=== PATIENT | female | born 1935 ===

== ENCOUNTER 2018-09-06 10:01 | Inpatient (IN) ==
[2018-09-06] MEDS ORDERED: PROMETHAZINE 25 MG/1 ML VIAL IM PRN (13:32)
[2018-09-06] MEDS ORDERED: ONDANSETRON 4 MG/2 ML VIAL IV PRN (13:32)
[2018-09-06] MEDS ORDERED: ACETAMINOPHEN 325 MG TABLET PO PRN (13:32)
[2018-09-06 14:11] LABS: ABG Base Excess 0.5 MMOL/L (-2.5-2.5); ABG HCO3 28.7 MMOL/L (20-26); ABG Oxygen Saturation 98.1 % (95-100); ABG PCO2 65.8 MM HG (35-48); ABG PH 7.258 (7.35-7.45); ABG PO2 130.2 MM HG (80-95); ABG TCO2 30.8 MMOL/L (23-27)
[2018-09-06] MEDS ORDERED: FUROSEMIDE 40 MG/4 ML VIAL IV SCH (14:17)
[2018-09-06] MEDS ORDERED: FUROSEMIDE 20 MG/2 ML VIAL IV SCH (14:26)
[2018-09-06 14:27] LABS: Immature Granulocytes % 0.5 %; Immature Granulocytes Absolute 0.04 #; Lymphocytes # 0.5 10*3/uL (1.4-4.0); Lymphocytes % 6.3 % (21.3-54.2); Mean Corpuscular HGB Conc 27.9 GM/DL (32-36); Mean Corpuscular Volume 86.8 FL (87-102); Monocytes % 4.3 % (1.7-12.7); Neutrophils % 88.9 % (38.7-73.9); Platelet Count 215 T/CUMM (130-400); Red Blood Count 4.17 MC/CUMM (3.8-5.5); Red Cell Distribution Width 19.6 % (9.3-17.3); White Blood Count 7.9 T/CUMM (4-12)
[2018-09-06 14:35] LABS: Hematocrit 36.2 VOL% (35.7-47.0); Hemoglobin 10.1 GM/DL (12.0-16.0)
[2018-09-06] MEDS: PANTOPRAZOLE 40 MG TABLET PO SCH ×2 (14:35→15:20)
[2018-09-06] MEDS ORDERED: MAGNESIUM SULF RIDER 4 GM in PREMIX 1 EACH IV PRN (14:36)
[2018-09-06] MEDS: methylPREDNISolone SOD SUC 40 MG/1 ML VIAL IV SCH ×2 (14:36→21:33)
[2018-09-06] MEDS ORDERED: POTASSIUM CHLORIDE 20 MEQ TABLET PO PRN (14:36)
[2018-09-06] MEDS ORDERED: MAGNESIUM SULF RIDER 2 GM in PREMIX 1 EACH IV PRN (14:36)
[2018-09-06 14:41] LABS: CKMB % 4.2 %
[2018-09-06 14:42] LABS: Troponin I 0.06 NG/ML (0.00-0.045)
[2018-09-06 14:48] LABS: % Iron Saturation 21.1 % (18-50); Ferritin 21.1 ng/ml (8-252)
[2018-09-06 14:49] LABS: Albumin 3.8 G/DL (3.4-5.0); Bilirubin,Total 0.4 MG/DL (0.2-1.0); Calcium 8.6 MG/DL (8.5-10.1); Osmolality,Calculated 287.3 MOS/KG (273-304); Thyroid Stimulating Hormone 0.231 uIU/ml (0.358-3.74); Total Protein 6.6 G/DL (6.4-8.3)
[2018-09-06 15:16] LABS: Amorphous Crystals,Urine Occasional /HPF (Few); Apearance,Urine CLOUDY (Clear); Bilirubin,Urine Negative (Negative); Blood, Urine Small mg/dL (Negative); Glucose,Urine (UA) Negative (Negative); Ketones,Urine Negative (Negative); Nitrite,Urine Negative (Negative); Protein,Urine Negative; Squamous Epithelial Cell,Urine Occasional /HPF (0-10); Urine Color Yellow (Yellow); Urine Specific Gravity 1.006 (1.001-1.035); Urine Urobilinogen < 2.0 EU/DL (0.2-1.0); WBC,Urine 1 /HPF (0-6)
[2018-09-06] MEDS: LEVOFLOXACIN INJ 500 MG in PREMIX 1 EACH IV SCH (15:23)
[2018-09-06] MEDS: ENOXAPARIN 40 MG/0.4 ML SYRINGE SUBCUT SCH (15:23)
[2018-09-06 15:26] LABS: Folate 10.1 NG/ML (5.4-24.0)
[2018-09-06 16:03] LABS: Acanthocytes Few; Anisocytosis 1+; Elliptocytes 1+; Microcytosis 1+; Platelet Estimate Normal; Polychromasia Slight
[2018-09-06] MEDS ORDERED: PROPOFOL 1,000 MG/100 ML BOTTLE IV ONE (18:07)
[2018-09-06] MEDS ORDERED: ETOMIDATE 20 MG/10 ML VIAL IV ONE ×2 (18:20→18:59)
[2018-09-06] MEDS ORDERED: SUCCINYLCHOLINE 200 MG/10 ML VIAL ONE (18:21)
[2018-09-06] MEDS ORDERED: LORazepam INJ 40 MG in DEXTROSE 5% 30 ML IV PRN (18:46)
[2018-09-06] MEDS ORDERED: ALBUTEROL 2.5 MG/3 ML NEB RESP TX PRN (18:46)
[2018-09-06] MEDS ORDERED: DOPamine 800 MG/250 ML PREMIX IV PRN (18:56)
[2018-09-06] MEDS ORDERED: fentaNYL INJ 1,250 MCG in SODIUM CHLORIDE 0.9% 225 ML IV PRN (18:59)
[2018-09-06] MEDS ORDERED: DOPamine 800 MG/250 ML PREMIX IV SCH (19:00)
[2018-09-06] MEDS ORDERED: DEXTROSE 50% 25 GM/50 ML VIAL IV PRN (19:00)
[2018-09-06] MEDS ORDERED: GLUCAGON 1 MG VIAL IM PRN (19:00)
[2018-09-06] MEDS ORDERED: SUCCINYLCHOLINE 200 MG/10 ML VIAL IV ONE (19:00)
[2018-09-06] MEDS: PROPOFOL 1,000 MG/100 ML BOTTLE IV SCH ×2 (19:05→23:50)
[2018-09-06] MEDS ORDERED: DOBUTamine 500 MG/250 ML PREMIX IV PRN (19:16)
[2018-09-06 20:32] LABS: Apearance,Urine CLEAR (Clear); Bacteria,Urine Occasional /HPF (Few); Bilirubin,Urine Negative (Negative); Blood, Urine Moderate mg/dL (Negative); Glucose,Urine (UA) Negative (Negative); Hyaline Casts,Urine 8 /LPF (0-3); Ketones,Urine Negative (Negative); Mucus,Urine Occasional /LPF (Occasional); Nitrite,Urine Negative (Negative); Protein,Urine Negative; RBC,Urine 17 /HPF (0-4); Squamous Epithelial Cell,Urine Occasional /HPF (0-10); Urine Color Straw (Yellow); Urine Specific Gravity 1.006 (1.001-1.035); Urine Urobilinogen < 2.0 EU/DL (0.2-1.0); WBC,Urine 6 /HPF (0-6)
[2018-09-06] MEDS: ALBUTEROL/IPRATROPIUM 3 ML NEB RESP TX SCH (20:41)
[2018-09-06 20:47] LABS: ABG Base Excess 4.2 MMOL/L (-2.5-2.5); ABG HCO3 28.2 MMOL/L (20-26); ABG PCO2 42.6 MM HG (35-48); ABG PH 7.438 (7.35-7.45)
[2018-09-06] MEDS: FLUTICASONE/SALMETEROL 500-50 DISKUS 14 DOSE INH SCH (20:49)
[2018-09-06] MEDS: CARVEDILOL 6.25 MG TABLET PO SCH (21:33)
[2018-09-06] MEDS: FAMOTIDINE 20 MG/2 ML VIAL IV SCH (21:33)
[2018-09-06] MEDS: hydrALAZINE 20 MG/1 ML VIAL IV PRN (21:34)
[2018-09-07] MEDS: INSULIN REGULAR 100 UNIT/ML SUBCUT SCH ×5 (00:08→23:51)
[2018-09-07] MEDS: ALBUTEROL/IPRATROPIUM 3 ML NEB RESP TX SCH ×4 (00:34→20:07)
[2018-09-07 04:35] LABS: ABG Base Excess 6.8 MMOL/L (-2.5-2.5); ABG HCO3 30.7 MMOL/L (20-26); ABG PCO2 39.3 MM HG (35-48); ABG PH 7.498 (7.35-7.45); ABG TCO2 27.4 MMOL/L (23-27)
[2018-09-07 04:44] LABS: Basophils % 0.1 % (0.0-0.8); Hematocrit 34.6 VOL% (35.7-47.0); Hemoglobin 10.2 GM/DL (12.0-16.0); Immature Granulocytes % 0.5 %; Immature Granulocytes Absolute 0.04 #; Lymphocytes # 0.4 10*3/uL (1.4-4.0); Lymphocytes % 5.1 % (21.3-54.2); Mean Corpuscular HGB Conc 29.5 GM/DL (32-36); Mean Corpuscular Volume 81.4 FL (87-102); Mean Platelet Volume 10.6 FL (9.6-12.0); Monocytes % 6.7 % (1.7-12.7); NRBC # 0.04 10*3/uL; Neutrophils % 87.6 % (38.7-73.9); Platelet Count 172 T/CUMM (130-400); Red Blood Count 4.25 MC/CUMM (3.8-5.5)
[2018-09-07 05:03] LABS: Albumin 3.7 G/DL (3.4-5.0); Bilirubin,Total 0.7 MG/DL (0.2-1.0); Calcium 8.6 MG/DL (8.5-10.1); Osmolality,Calculated 288.3 MOS/KG (273-304); Total Protein 6.4 G/DL (6.4-8.3)
[2018-09-07] MEDS: methylPREDNISolone SOD SUC 40 MG/1 ML VIAL IV SCH ×3 (05:04→21:09)
[2018-09-07 05:09] LABS: Risk Ratio 3.12; VLDL CHOLESTEROL 38.2 MG/DL
[2018-09-07] MEDS: PROPOFOL 1,000 MG/100 ML BOTTLE IV SCH ×3 (05:24→19:45)
[2018-09-07] MEDS: hydrALAZINE 20 MG/1 ML VIAL IV PRN (07:37)
[2018-09-07] MEDS: SPIRONOLACTONE 25 MG TABLET PO SCH (08:41)
[2018-09-07] MEDS: FUROSEMIDE 40 MG/4 ML VIAL IV SCH ×2 (08:41→16:13)
[2018-09-07] MEDS: LISINOPRIL 10 MG TABLET PO SCH (08:41)
[2018-09-07] MEDS: FAMOTIDINE 20 MG/2 ML VIAL IV SCH ×2 (08:41→20:21)
[2018-09-07] MEDS: CARVEDILOL 6.25 MG TABLET PO SCH ×2 (08:42→20:21)
[2018-09-07] MEDS: POTASSIUM CHLORIDE RIDER 10 MEQ in PREMIX 1 EACH IV PRN ×3 (08:56→11:04)
[2018-09-07] MEDS ORDERED: amLODIPine 10 MG TABLET PO SCH (09:00)
[2018-09-07] MEDS: FLUTICASONE/SALMETEROL 500-50 DISKUS 14 DOSE INH SCH ×2 (09:38→21:08)
[2018-09-07 10:55] LABS: ABG HCO3 32.7 MMOL/L (20-26); ABG Oxygen Saturation 98.9 % (95-100); ABG PCO2 36.6 MM HG (35-48); ABG PH 7.548 (7.35-7.45); ABG TCO2 28.2 MMOL/L (23-27); Pt O2 Delivery Device Ventilator
[2018-09-07] MEDS ORDERED: amLODIPine 5 MG TABLET PO SCH (11:51)
[2018-09-07] MEDS: LEVOFLOXACIN INJ 500 MG in PREMIX 1 EACH IV SCH (14:57)
[2018-09-07] MEDS: ENOXAPARIN 40 MG/0.4 ML SYRINGE SUBCUT SCH (14:57)
[2018-09-08] MEDS: ALBUTEROL/IPRATROPIUM 3 ML NEB RESP TX SCH ×4 (00:50→19:32)
[2018-09-08] MEDS: PROPOFOL 1,000 MG/100 ML BOTTLE IV SCH (03:40)
[2018-09-08 03:51] LABS: ABG Base Excess 9.4 MMOL/L (-2.5-2.5); ABG HCO3 33.2 MMOL/L (20-26); ABG Oxygen Saturation 99.1 % (95-100); ABG PCO2 41.3 MM HG (35-48); ABG PH 7.515 (7.35-7.45); ABG TCO2 29.1 MMOL/L (23-27)
[2018-09-08 03:57] LABS: Basophils % 0.1 % (0.0-0.8); Hematocrit 40.7 VOL% (35.7-47.0); Hemoglobin 12.3 GM/DL (12.0-16.0); Immature Granulocytes % 0.7 %; Immature Granulocytes Absolute 0.08 #; Lymphocytes # 0.3 10*3/uL (1.4-4.0); Lymphocytes % 2.5 % (21.3-54.2); Mean Corpuscular HGB Conc 30.2 GM/DL (32-36); Mean Corpuscular Volume 79.8 FL (87-102); Monocytes % 4.1 % (1.7-12.7); Neutrophils % 92.6 % (38.7-73.9); Platelet Count 249 T/CUMM (130-400); Red Cell Distribution Width 19.4 % (9.3-17.3); White Blood Count 12.2 T/CUMM (4-12)
[2018-09-08 04:15] LABS: Calcium 9.3 MG/DL (8.5-10.1); Osmolality,Calculated 292.5 MOS/KG (273-304)
[2018-09-08 04:59] LABS: Band Neutrophils 2 % (0-10); Lymphocytes 2 % (20-55); Platelet Estimate Normal; Segmented Neutrophils 92 % (50-85); Total Cells Counted 100
[2018-09-08] MEDS: INSULIN REGULAR 100 UNIT/ML SUBCUT SCH (06:12)
[2018-09-08] MEDS: methylPREDNISolone SOD SUC 40 MG/1 ML VIAL IV SCH ×3 (06:18→21:04)
[2018-09-08] MEDS: FLUTICASONE/SALMETEROL 500-50 DISKUS 14 DOSE INH SCH ×2 (08:02→20:34)
[2018-09-08] MEDS: FAMOTIDINE 20 MG/2 ML VIAL IV SCH ×2 (08:19→20:32)
[2018-09-08] MEDS: CARVEDILOL 6.25 MG TABLET PO SCH ×2 (08:20→20:34)
[2018-09-08] MEDS: LISINOPRIL 10 MG TABLET PO SCH (08:20)
[2018-09-08] MEDS: SPIRONOLACTONE 25 MG TABLET PO SCH (08:20)
[2018-09-08] MEDS ORDERED: PHENYLEPHRINE DRIP 40 MG/250 ML PREMIX IV PRN (08:33)
[2018-09-08] MEDS ORDERED: FUROSEMIDE 40 MG TABLET PER TUBE SCH (09:00)
[2018-09-08] MEDS: POTASSIUM CHLORIDE RIDER 10 MEQ in PREMIX 1 EACH IV PRN ×3 (10:32→12:42)
[2018-09-08] MEDS: ENOXAPARIN 40 MG/0.4 ML SYRINGE SUBCUT SCH (14:02)
[2018-09-08] MEDS: LEVOFLOXACIN INJ 500 MG in PREMIX 1 EACH IV SCH (14:02)
[2018-09-09] MEDS: ALBUTEROL/IPRATROPIUM 3 ML NEB RESP TX SCH ×4 (01:33→19:11)
[2018-09-09] MEDS ORDERED: SODIUM CHLORIDE 0.9% 250 ML IV ONE (01:53)
[2018-09-09 05:13] LABS: ABG HCO3 32.8 MMOL/L (20-26); ABG Oxygen Saturation 98.8 % (95-100); ABG PCO2 51.1 MM HG (35-48); ABG PH 7.442 (7.35-7.45); ABG TCO2 30.5 MMOL/L (23-27)
[2018-09-09] MEDS: methylPREDNISolone SOD SUC 40 MG/1 ML VIAL IV SCH ×3 (05:18→21:02)
[2018-09-09 05:46] LABS: Calcium 8.9 MG/DL (8.5-10.1); Prealbumin 19.8 MG/DL (20-40)
[2018-09-09 05:49] LABS: Basophils % 0.1 % (0.0-0.8); Hematocrit 40.7 VOL% (35.7-47.0); Immature Granulocytes % 0.6 %; Immature Granulocytes Absolute 0.07 #; Lymphocytes # 0.4 10*3/uL (1.4-4.0); Lymphocytes % 3.1 % (21.3-54.2); Mean Corpuscular HGB Conc 29.7 GM/DL (32-36); Mean Corpuscular Volume 82.1 FL (87-102); Mean Platelet Volume 11.6 FL (9.6-12.0); Monocytes % 4.5 % (1.7-12.7); Neutrophils % 91.7 % (38.7-73.9); Platelet Count 229 T/CUMM (130-400); Red Blood Count 4.96 MC/CUMM (3.8-5.5); Red Cell Distribution Width 18.9 % (9.3-17.3); White Blood Count 12.4 T/CUMM (4-12)
[2018-09-09 05:51] LABS: Hemoglobin 12.1 GM/DL (12.0-16.0)
[2018-09-09 06:24] LABS: Lymphocytes 3 % (20-55); Segmented Neutrophils 95 % (50-85); Total Cells Counted 100
[2018-09-09 06:25] LABS: Platelet Estimate Normal; Polychromasia Few
[2018-09-09] MEDS: FAMOTIDINE 20 MG/2 ML VIAL IV SCH ×2 (08:44→20:50)
[2018-09-09] MEDS: CARVEDILOL 6.25 MG TABLET PO SCH ×2 (08:45→20:50)
[2018-09-09] MEDS: FUROSEMIDE 40 MG TABLET PO SCH (08:45)
[2018-09-09] MEDS: SPIRONOLACTONE 25 MG TABLET PO SCH (08:45)
[2018-09-09] MEDS: FLUTICASONE/SALMETEROL 500-50 DISKUS 14 DOSE INH SCH ×3 (08:45→20:50)
[2018-09-09] MEDS ORDERED: METOPROLOL TARTRATE 5 MG/5 ML VIAL IV ONE ×2 (10:23→18:46)
[2018-09-09] MEDS: LISINOPRIL 2.5 MG TABLET PO SCH (12:34)
[2018-09-09] MEDS: hydrALAZINE 20 MG/1 ML VIAL IV PRN (15:54)
[2018-09-09] MEDS: LEVOFLOXACIN INJ 500 MG in PREMIX 1 EACH IV SCH (16:00)
[2018-09-09] MEDS: ENOXAPARIN 40 MG/0.4 ML SYRINGE SUBCUT SCH (16:00)
[2018-09-09] MEDS: MORPHINE 4 MG/1 ML VIAL IV PRN (16:45)
[2018-09-09] MEDS ORDERED: POTASSIUM CHLORIDE 20 MEQ/15 ML UDCUP PER TUBE ONE (17:33)
[2018-09-09] MEDS ORDERED: DIGOXIN 0.5 MG/2 ML AMP IV ONE (17:33)
[2018-09-10] MEDS: ALBUTEROL/IPRATROPIUM 3 ML NEB RESP TX SCH ×4 (00:29→19:18)
[2018-09-10] MEDS: methylPREDNISolone SOD SUC 40 MG/1 ML VIAL IV SCH ×3 (05:46→21:17)
[2018-09-10] MEDS ORDERED: METOPROLOL TARTRATE 5 MG/5 ML VIAL IV PRN (07:18)
[2018-09-10] MEDS: FLUTICASONE/SALMETEROL 500-50 DISKUS 14 DOSE INH SCH ×2 (08:00→20:17)
[2018-09-10] MEDS: MORPHINE 4 MG/1 ML VIAL IV PRN ×2 (08:01→17:56)
[2018-09-10] MEDS: SPIRONOLACTONE 25 MG TABLET PO SCH (08:01)
[2018-09-10] MEDS: FUROSEMIDE 40 MG TABLET PO SCH (08:01)
[2018-09-10] MEDS: FAMOTIDINE 20 MG/2 ML VIAL IV SCH ×2 (08:01→20:37)
[2018-09-10] MEDS: LISINOPRIL 2.5 MG TABLET PO SCH (08:01)
[2018-09-10] MEDS: CARVEDILOL 12.5 MG TABLET PO SCH ×2 (08:01→21:16)
[2018-09-10 08:10] LABS: Calcium 9.3 MG/DL (8.5-10.1); Osmolality,Calculated 298.1 MOS/KG (273-304)
[2018-09-10 08:17] LABS: Basophils % 0.2 % (0.0-0.8); Immature Granulocytes % 0.6 %; Immature Granulocytes Absolute 0.07 #; Lymphocytes # 0.4 10*3/uL (1.4-4.0); Lymphocytes % 2.9 % (21.3-54.2); Mean Corpuscular HGB Conc 28.2 GM/DL (32-36); Mean Corpuscular Volume 85.9 FL (87-102); Mean Platelet Volume 11.9 FL (9.6-12.0); Monocytes % 5.1 % (1.7-12.7); Neutrophils % 91.2 % (38.7-73.9); Platelet Count 240 T/CUMM (130-400); Red Blood Count 5.24 MC/CUMM (3.8-5.5); Red Cell Distribution Width 18.6 % (9.3-17.3); White Blood Count 12.3 T/CUMM (4-12)
[2018-09-10 08:21] LABS: Hemoglobin 12.7 GM/DL (12.0-16.0)
[2018-09-10 08:38] LABS: Hypochromasia Slight; Lymphocytes 4 % (20-55); Ovalocytes Slight; Platelet Estimate Adequate; Segmented Neutrophils 91 % (50-85); Total Cells Counted 100
[2018-09-10] MEDS ORDERED: INSULIN REGULAR 100 UNIT/ML SUBCUT SCH ×2 (12:00→14:52)
[2018-09-10] MEDS: ENOXAPARIN 40 MG/0.4 ML SYRINGE SUBCUT SCH (15:48)
[2018-09-10] MEDS: LEVOFLOXACIN INJ 500 MG in PREMIX 1 EACH IV SCH (15:48)
[2018-09-10] MEDS: INSULIN REGULAR 100 UNIT/ML SUBCUT SCH (18:13)
[2018-09-11] MEDS: INSULIN REGULAR 100 UNIT/ML SUBCUT SCH ×4 (00:15→17:04)
[2018-09-11] MEDS: MORPHINE 4 MG/1 ML VIAL IV PRN (00:15)
[2018-09-11] MEDS: ALBUTEROL/IPRATROPIUM 3 ML NEB RESP TX SCH ×4 (01:20→19:38)
[2018-09-11] MEDS: methylPREDNISolone SOD SUC 40 MG/1 ML VIAL IV SCH (05:53)
[2018-09-11] MEDS: CARVEDILOL 12.5 MG TABLET PO SCH ×2 (09:10→21:51)
[2018-09-11] MEDS: SPIRONOLACTONE 25 MG TABLET PO SCH (09:10)
[2018-09-11] MEDS: LISINOPRIL 2.5 MG TABLET PO SCH (09:10)
[2018-09-11] MEDS: FUROSEMIDE 40 MG TABLET PO SCH (09:10)
[2018-09-11] MEDS: FAMOTIDINE 20 MG/2 ML VIAL IV SCH (09:10)
[2018-09-11] MEDS: FLUTICASONE/SALMETEROL 500-50 DISKUS 14 DOSE INH SCH ×2 (09:13→21:51)
[2018-09-11 09:29] LABS: Calcium 8.7 MG/DL (8.5-10.1); Osmolality,Calculated 309.8 MOS/KG (273-304)
[2018-09-11] MEDS: LEVOFLOXACIN INJ 500 MG in PREMIX 1 EACH IV SCH (15:27)
[2018-09-11] MEDS: ENOXAPARIN 40 MG/0.4 ML SYRINGE SUBCUT SCH (15:27)
[2018-09-11] MEDS ORDERED: methylPREDNISolone SOD SUC 40 MG/1 ML VIAL IV SCH (17:00)
[2018-09-12] MEDS: ALBUTEROL/IPRATROPIUM 3 ML NEB RESP TX SCH ×4 (00:50→18:54)
[2018-09-12] MEDS: INSULIN REGULAR 100 UNIT/ML SUBCUT SCH ×4 (01:29→18:36)
[2018-09-12 05:43] LABS: Prealbumin 25.2 MG/DL (20-40)
[2018-09-12] MEDS: SPIRONOLACTONE 25 MG TABLET PO SCH (08:50)
[2018-09-12] MEDS: predniSONE 10 MG TABLET PO SCH (08:50)
[2018-09-12] MEDS: CARVEDILOL 12.5 MG TABLET PO SCH ×2 (08:50→21:36)
[2018-09-12] MEDS: LISINOPRIL 2.5 MG TABLET PO SCH (08:50)
[2018-09-12] MEDS: FUROSEMIDE 40 MG TABLET PO SCH (08:50)
[2018-09-12] MEDS: FLUTICASONE/SALMETEROL 500-50 DISKUS 14 DOSE INH SCH ×2 (08:54→21:37)
[2018-09-12 10:59] LABS: Calcium 8.8 MG/DL (8.5-10.1)
[2018-09-12] MEDS ORDERED: TUBERCULIN SKIN TEST 0.1 ML SYRINGE INTRADERM ONE (12:00)
[2018-09-12 14:05] LABS: Folate 14.3 NG/ML (5.4-24.0); Vitamin B12 785 PG/ML (211-911)
[2018-09-12] MEDS: ENOXAPARIN 40 MG/0.4 ML SYRINGE SUBCUT SCH (21:36)
[2018-09-13] MEDS: INSULIN REGULAR 100 UNIT/ML SUBCUT SCH ×3 (01:11→12:22)
[2018-09-13] MEDS: ALBUTEROL/IPRATROPIUM 3 ML NEB RESP TX SCH ×2 (01:20→07:09)
[2018-09-13 07:03] LABS: Calcium 8.7 MG/DL (8.5-10.1); Osmolality,Calculated 298.1 MOS/KG (273-304)
[2018-09-13] MEDS: SPIRONOLACTONE 25 MG TABLET PO SCH (09:15)
[2018-09-13] MEDS: FLUTICASONE/SALMETEROL 500-50 DISKUS 14 DOSE INH SCH (09:15)
[2018-09-13] MEDS: LISINOPRIL 2.5 MG TABLET PO SCH (09:15)
[2018-09-13] MEDS: CARVEDILOL 12.5 MG TABLET PO SCH (09:15)
[2018-09-13] MEDS: FUROSEMIDE 40 MG TABLET PO SCH (09:15)
[2018-09-13] MEDS: predniSONE 10 MG TABLET PO SCH (09:15)
[2018-09-13 11:49] VITALS: BP 97/50
[2018-09-13] MEDS ORDERED: ASPIRIN EC 81 MG TABLET PO SCH (12:00)
== END 2018-09-13 11:50 | DRG 208 ==
LOC: N.TELEN 12:24 → SUATTDRO 12:24 → N.CC 14:46 → N.2E 09-11 18:21
PROVIDERS: ADMIT Internal Medicine; ATTEND Internal Medicine